=== PATIENT | male | born 1985 ===

== ENCOUNTER 2017-02-06 08:18 | Emergency (ER) | payer OTHER ==
[2017-02-06 08:23] VITALS: BMI 31.5
--- NOTE | 2017-02-06 10:25 | C.PDOC ---
History Of Present Illness 31 y/o male presents to the ED with complains of laceration to left middle finger sustained [employer]URE[employer]. Pt reports numbness to tip of finger. Denies any other injury. Time Seen by Provider: 02/06/17 08:46 Chief Complaint (Nursing): Abnormal Skin Integrity History Per: Patient History/Exam Limitations: language barrier Onset/Duration Of Symptoms: Hrs Current Symptoms Are (Timing): Still Present Location Of Injury: Left: Hand Severity: Mild Recent travel outside of the [place]: No Past Medical History Reviewed: Historical Data, Nursing Documentation, Vital Signs Vital Signs: Last Vital Signs Temp 97.1 F L 02/06/17 11:17 Pulse 82 02/06/17 11:17 Resp 20 02/06/17 11:17 BP 132/90 02/06/17 11:17 Pulse Ox 98 02/06/17 11:17 - Medical History PMH: Anxiety, Asthma Family History: States: Diabetes - Social History Hx Alcohol Use: No Hx Substance Use: No - Immunization History Hx Tetanus Toxoid Vaccination: No Hx Influenza Vaccination: No Hx Pneumococcal Vaccination: No Review Of Systems Except As Marked, All Systems Reviewed And Found Negative. Musculoskeletal: Positive for: Other (laceration to left middle finger) Neurological: Positive for: Numbness (tip of left middle finger) Physical Exam - Physical Exam Appears: Non-toxic, No Acute Distress Skin: Warm, Dry, No Rash Head: Atraumatic, Normacephalic Extremity: Normal ROM, Capillary Refill (<2 seconds), Other (linear 2.5 cm laceration to volar/palmar aspect 3rd proximal phalanx; no active bleeding. Numbness distal to laceration, able to fully extend finger) Neurological/Psych: Oriented x3, Normal Motor ED Course And Treatment O2 Sat by Pulse Oximetry: 97 (room air) Pulse Ox Interpretation: Normal Laceration - Laceration Repair No standard instances Wound Length (In cm): 2.5 Description Of Wound: Linear Wound Examination: Irrigated With Saline, No FB With Wound Exploration Wound Closure: Suture Disposition - Disposition Disposition: HOME/ ROUTINE Disposition Time: 11:24 Condition: STABLE - Clinical Impression Clinical Impression: Finger laceration - PA / DIRECTOR OF BLOOD / Resident Statement MD/DO has reviewed & agrees with the documentation as recorded. - Scribe Statement The provider has reviewed the documentation as recorded by the Bebe Dao All medical record entries made by the Scribe were at my direction and personally dictated by me. I have reviewed the chart and agree that the record accurately reflects my personal performance of the history, physical exam, medical decision making, and the department course for this patient. I have also personally directed, reviewed, and agree with the discharge instructions and disposition. Physician Patient Turnover Patient Signed Over To: Bobbi Rios Handoff Comments: lac repair, dispo
[2017-02-06] MEDS ORDERED: Tetanus/Diphtheria Toxoids 0.5 ml Syringe IM ONE ×2 (11:08→11:16)
[2017-02-06] MEDS ORDERED: Lidocaine 2% Inj (20ml) INFIL STA (11:08)
[2017-02-06] MEDS ORDERED: Bacitracin 500 Units/gm Oint Foilpak UD TOP STA (11:09)
[2017-02-06] MEDS ORDERED: Bacitracin 500 Units/gm Oint Foilpak UD ONE (11:11)
[2017-02-06] MEDS ORDERED: Lidocaine 2% Inj (20ml) ONE (11:11)
[2017-02-06 12:41] VITALS: BP 128/87; PULSE 81; RESP 19; TEMP 98.1; O2SAT 98
== END 2017-02-06 12:40 | disposition home or self-care (01) ==
LOC: C.ER 08:18
DX: S61.213A Laceration without foreign body of left middle finger without damage to nail, initial encounter (principal); X58.XXXA Exposure to other specified factors, initial encounter